=== PATIENT | female | born 1950 | race Caucasian/White ===

== ENCOUNTER 2022-06-27 12:55 | Observation (INO) | payer MEDICARE ==
[~2022-06-27 12:55] MED LIST: SODIUM CHLORIDE 0.9% 1,000 ML IV ONE
[2022-06-27] MEDS ORDERED: HEPARIN SOD,PORK IN 0.45% NACL 25,000 UNIT in 0.45% NACL 1 250ML.BAG IV ONE (13:05)
[2022-06-27] MEDS ORDERED: ASPIRIN 81 MG PO STA (13:16)
[2022-06-27] MEDS ORDERED: CLOPIDOGREL 75 MG TAB PO STA (13:16)
[2022-06-27] MEDS ORDERED: CLOPIDOGREL 75 MG TAB ONE (13:18)
[2022-06-27] MEDS ORDERED: ASPIRIN 81 MG ONE (13:18)
[2022-06-27] MEDS ORDERED: ACETAMINOPHEN TAB 325 MG TAB ONE (13:19)
[2022-06-27 13:39] VITALS: RESP 16
[2022-06-27] MEDS ORDERED: ALPRAZolam 0.5 MG TAB PO PRN (13:42)
[2022-06-27] MEDS ORDERED: ATORVASTATIN 80 MG TAB PO STA (13:42)
[2022-06-27] MEDS ORDERED: NITROGLYCERIN SL TABS 0.4 MG TAB SUBLINGUAL PRN ×2 (13:42→17:09)
[2022-06-27] MEDS ORDERED: ASPIRIN 325 MG TAB PO STA (13:42)
[2022-06-27] MEDS ORDERED: ALPRAZolam 0.25 MG TAB PO PRN (13:42)
[2022-06-27] MEDS ORDERED: HEPARIN SOD,PORK IN 0.45% NACL 25,000 UNIT in 0.45% NACL 1 250ML.BAG IV SCH (13:45)
[2022-06-27] MEDS: SODIUM CHLORIDE 0.9% 1,000 ML IV SCH (13:54)
[2022-06-27] MEDS ORDERED: MIDAZOLAM 2 MG/2 ML VIAL IV ONE (15:40)
[2022-06-27] MEDS ORDERED: HYDROmorphone 0.5 MG/0.5 ML SYRINGE IVP ONE (15:40)
[2022-06-27] MEDS ORDERED: LIDOCAINE 1% INJ 10MG/ML (30 ML VIAL-PF) SQ ONE (15:41)
[2022-06-27] MEDS ORDERED: HEPARIN SODIUM 1,000 UN/ML (10ML VL) ONE (15:42)
[2022-06-27] MEDS ORDERED: HEPARIN SODIUM 1,000 UN/ML (10ML VL) IV ONE (15:45)
[2022-06-27] MEDS: NITROGLYCERIN 1000MCG/10ML SYRINGE INTRACORON ONE ×2 (16:14→16:49)
[2022-06-27] MEDS ORDERED: NITROGLYCERIN 1000MCG/10ML SYRINGE INTRACORON ONE (16:15)
[2022-06-27] MEDS ORDERED: SODIUM CHLORIDE 0.9% 500 ML 500 ML IV ONE (16:16)
[2022-06-27] MEDS ORDERED: IOPAMIDOL-370 100ML BTL INJ ONE (16:26)
[2022-06-27] MEDS ORDERED: IOPAMIDOL-300 100ML BTL INJ ONE (16:49)
[2022-06-27] MEDS ORDERED: MAG HYDROX/AL HYDROX/SIMETH 30 ML CUP PO PRN (17:09)
[2022-06-27] MEDS ORDERED: ZOLPIDEM 5 MG TAB PO PRN (17:09)
[2022-06-27] MEDS ORDERED: ATROPINE SULFATE 0.1 MG/ML 10ML SYRINGE IV PRN (17:09)
[2022-06-27] MEDS ORDERED: CLOPIDOGREL 75 MG TAB PO ONE ×2 (17:09)
[2022-06-27] MEDS ORDERED: RX INFO: IV CONTRAST WAS GIVEN 1 EACH MISC MISCELLANE PRN (17:09)
[2022-06-27] MEDS: carvediloL 3.125 MG TAB PO SCH (18:04)
[2022-06-27] MEDS: lisinopriL 10 MG TAB PO SCH (20:15)
--- NOTE | 2022-06-27 21:54 | PTCA ---
PERCUTANEOUSTRANS CORORONARY ANGIOGRAPHY DATE OF SERVICE: 06/27/2022. PROCEDURE PERFORMED: 1. Intravascular ultrasound of dominant right coronary artery. 2. Percutaneous transluminal coronary angioplasty and stenting of proximal right coronary artery with 4 drug-eluting stents. PERFORMED BY: Dr. Hardik Key. ANESTHESIA: Moderate conscious sedation time was 74 minutes. The patient was administered Versed. Oxygen saturation, hemodynamics, and EKG were monitored closely. CLINICAL INFORMATION: Ms. Penny Bennett is a 71-year-old lady with a history of recent cardiomyopathy with a global decrease in contractility and also echocardiography appearance of amyloidosis. As part of the workup, she was advised a cardiac catheterization. She also had a 24- hour electrophoresis with a question of monoclonal gammopathy. However, coronary angiography was performed to rule out obstructive CAD given the cardiomyopathy picture. Risks, benefits, options, and rationale were explained. This morning, the patient underwent a cardiac catheterization at [facility], which revealed a 90% proximal RCA disease with a lot of hazy area prior to the stenosis. Left system did not have significant disease. RCA was a dominant vessel. PROCEDURE NOTE: The patient was brought here with a sheath in the right femoral artery. Under strict aseptic precautions and local anesthesia, I exchanged the sheath over a guidewire to another 6-Swedish femoral sheath. Initially, I started with the right Samantha-type guide catheter and a Runthrough wire. I performed intravascular ultrasound, which revealed that there was a plaque throughout the proximal RCA, and the lesion was quite tight. I performed pre-dilatation with a 2.5 caliber NC Trek balloon of 12 mm length. I then deployed a 15 mm long Xience stent of 3.5 caliber at 15 atmospheres. Proximal to the stented area, the entire vessel showed multiple areas of haziness and also irregularities suggesting that the entire vessel had a lot of plaque with significant disease, although noncritical on IVUS. An IVUS was again performed, and after the initial pre-dilatation, I noted that the caliber of the vessel was 3.5, the reference vessel, and then I had difficulty advancing the IVUS catheter after I deployed the first stent. However, proximal to the first stent, I deployed another 12 mm long 3.5 caliber Xience stent. Proximal to this stent, also there was a lot of haziness. I had difficulty advancing the IVUS catheter. I switched over to an Allright 3.5 guide catheter after trying with a GuideLiner. With this guide catheter and Runthrough wire, I deployed a 3.5 caliber 15 mm long Xience stent proximal to the previous stent. There was a small gap, and this was addressed with a 3.5 caliber 8 mm long Xience stent. All the stents were deployed at 15 atmospheres. I then performed an intravascular ultrasound, and this study revealed that the stent was well apposed and fully expanded. Excellent angiographic result was achieved, and also excellent expansion of the stent with good apposition was noted on the IVUS. The patient received 3500 units of heparin. ACT was over 300 and also 246. At the end of the procedure, ACT was 230. The patient received 600 mg of Plavix totally. She had received 2 tablets earlier and 6 tablets today. She will be on aspirin and Plavix without interruption for 1 year. The sheath was taken out, and Angio-Seal device was used to secure hemostasis. Because of some oozing, FemoStop was applied. She was sent to the room in a stable condition. Excellent angiographic result without complication was achieved. Findings were discussed with the patient as well as her family members including her , brother, and [id number]. I expect she will be discharged tomorrow if she remains stable. MMODL / IJN: [id number] /
[2022-06-28] MEDS: SODIUM CHLORIDE 0.9% 1,000 ML IV SCH (03:44)
[2022-06-28] MEDS: carvediloL 3.125 MG TAB PO SCH (06:10)
[2022-06-28 06:21] LABS: Basophils % (A) 0 %; Eosinophils # (A) 0.2 k/uL (0-0.7); Eosinophils % (A) 4 %; HCT 27.3 % (34.0-46.0); HGB 9.2 gm/dL (11.4-16.0); Lymphocytes # (A) 1.5 k/uL (1.0-4.8); Lymphocytes % (A) 29 %; MCH 29.8 pg (25.0-35.0); MCHC 33.6 g/dL (31.0-37.0); MCV 88.8 fL (80.0-100.0); Mean Platelet Volume 7.7; Monocytes # (A) 0.3 k/uL (0-1.0); Monocytes % (A) 6 %; Neutrophils # (A) 3.1 k/uL (1.3-7.7); Neutrophils % (A) 59 %; Platelet Count 245 k/uL (150-450); RBC 3.08 m/uL (3.80-5.40); RDW 13.5 % (11.5-15.5); WBC 5.3 k/uL (3.8-10.6)
[2022-06-28 06:28] VITALS: BP 151/69; PULSE 68; TEMP 98.1
[2022-06-28 06:32] LABS: African American GFR (CKD) 62 (>60 ml/min/1.73 sqM); Anion Gap 4 mmol/L; Blood Urea Nitrogen 22 mg/dL (7-17); Calcium 8.5 mg/dL (8.4-10.2); Carbon Dioxide 21 mmol/L (22-30); Chloride 111 mmol/L (98-107); Glucose 87 mg/dL (74-99); Non-African American GFR(CKD) 54 (>60 ml/min/1.73 sqM); Potassium 4.2 mmol/L (3.5-5.1); Sodium 136 mmol/L (137-145)
[2022-06-28] MEDS ORDERED: HEPARIN SODIUM,PORCINE 10,000 UNIT in SODIUM CHLORIDE 0.9% 1,000 ML IRRIGATION PRN (07:00)
[2022-06-28] MEDS ORDERED: HEPARIN SODIUM,PORCINE 2,500 UNIT in SODIUM CHLORIDE 0.9% 250 ML IRRIGATION PRN (07:00)
[2022-06-28] MEDS ORDERED: CLOPIDOGREL 75 MG TAB PO SCH (09:00)
[2022-06-28] MEDS ORDERED: carvediloL 6.25 MG TAB PO SCH (09:00)
[2022-06-28] MEDS ORDERED: ASPIRIN 81 MG PO SCH (09:00)
[2022-06-28] MEDS ORDERED: ATORVASTATIN 40 MG TAB PO SCH (09:00)
[2022-06-28] MEDS: lisinopriL 10 MG TAB PO SCH (09:17)
[2022-06-28 12:19] VITALS: BMI 18.8
[2022-06-28] MEDS ORDERED: carvediloL 3.125 MG TAB PO SCH (21:00)
--- NOTE | 2022-06-29 05:28 | DS ---
DISCHARGE SUMMARY DIAGNOSES: Unstable angina, cardiomyopathy, hypertension. HOSPITAL COURSE: Mrs. Bennett was transferred from [facility] where she underwent a cardiac cath that revealed a 90% proximal RCA disease with significant plaque as well. This was a dominant RCA. She has a cardiomyopathy with ejection fraction of less than 30% and cardiac cath was performed to look for etiology of cardiomyopathy if it was of ischemic or nonischemic. She was transferred here with a sheath in her right groin. I performed PTCA and stenting of the proximal RCA. Four drug-eluting stents were deployed. Intravascular ultrasound was used. Angiographic result was excellent and the ultrasound revealed full expansion with good apposition of the stent. The patient had uneventful course last night. She will be discharged today and I will see her in the office on the . Discharge instructions regarding activity, diet and medications were given. Vital signs are stable. Blood pressure is 128/70, pulse rate is 72 per minute. S1, S2 heard normally. Lungs are clear. Abdominal and lower extremities exam unchanged. Right radial site and right femoral site are both clean and dry with a good pulse. She will be discharged on aspirin 81 mg daily, Plavix 75 mg daily, which she will continue for 1 year without interruption. She will also be on atorvastatin 40 mg daily. Carvedilol 6.25 mg in the morning, 3.125 mg in the evening. Lisinopril 10 mg b.i.d. She will also be given sublingual nitroglycerin. I did advise her not to do strenuous activity and not to return to work until I see her on the . At the time of my discharge, she is quite stable and ambulatory. MMODL / IJN: [id number] /
== END 2022-06-28 11:31 | disposition home or self-care (01) ==
LOC: 6NMEDSUR 12:56 → INTOOBSV 12:56 → 6NMEDSUR 16:53
PROVIDERS: ADMIT Internal Medicine Interventional Cardiology; ATTEND Internal Medicine Interventional Cardiology
DX: I25.110 Atherosclerotic heart disease of native coronary artery with unstable angina pectoris (principal); I42.5 Other restrictive cardiomyopathy; I34.0 Nonrheumatic mitral (valve) insufficiency; I10 Essential (primary) hypertension; Z79.82 Long term (current) use of aspirin; Z79.899 Other long term (current) drug therapy; Z82.49 Family history of ischemic heart disease and other diseases of the circulatory system
CPT/HCPCS: 92978; 80048; 85025; 85730; G0378 ×2; G0379; C9600; C1769 ×4; C1760; C1887 ×2; C1894; C1753; C1874 ×2; C1725; J2250; J2001; J1644 ×2; J1170; Q9967 ×2

== ENCOUNTER → 2023-03-24 | Outpatient (CLI) | payer MEDICARE ==
[~2023-03-24] MED LIST changes: +DENOSUMAB 60 MG/ML 1 ML SYRINGE SQ NR; -SODIUM CHLORIDE 0.9% 1,000 ML IV ONE
[2023-03-24 10:39] VITALS: BP 162/78; PULSE 68; RESP 16; TEMP 97.6
== END ==
LOC: PROCWHC3 10:04
PROVIDERS: ATTEND Family Medicine
DX: M81.0 Age-related osteoporosis without current pathological fracture (principal)
CPT/HCPCS: 96372; J0897